=== PATIENT | male | born 1980 | race Caucasian/White ===

== ENCOUNTER 2018-08-19 17:15 | Emergency (ER) | payer OTHER ==
[2018-08-19 17:31] VITALS: BP 152/113
[2018-08-19] MEDS ORDERED: IBUPROFEN 800 MG TABLET PO STA (18:05)
--- NOTE | 2018-08-19 18:06 | ED Physician Documentation ---
PD HPI UPPER EXT INJURY - Stated complaint Stated Complaint: L WRIST/SHOULDER INJ - Chief complaint Chief Complaint: Trauma Ext - History obtained from History obtained from: Patient, Family - History of Present Illness Location: Left (37-year-old gentleman with history of trauma to the left side remotely culminating in a labrum tear on the left shoulder and a fusion of the left wrist fell today on the left side injuring the wrist, hand, and shoulder. He has full range of motion of the shoulder but feels popping and the wrist is severely tender over the dorsal surface and medial surface radiating anteriorly. He cannot move the wrist at all but that is chronic from the fusion. No other injuries. Save for a mild ankle injury and he is walking normally.) Review of Systems Constitutional: reports: Reviewed and negative Cardiac: reports: Reviewed and negative Respiratory: reports: Reviewed and negative PD PAST MEDICAL HISTORY - Past Medical History Respiratory: Asthma - Past Surgical History Past Surgical History: Yes Ortho: Shoulder arthroplasty - Present Medications Home Medications: Ambulatory Orders Medication Instructions Recorded Confirmed Gabapentin 3,600 mg PO TID 01/03/14 04/05/14 traMADol [Ultram] 50 mg PO TID 01/03/14 04/05/14 Amoxicillin 500 mg PO TID #30 tablet 04/03/14 04/05/14 Oxycodone HCl/Acetaminophen 1 - 2 each PO Q6HR PRN #20 tablet 04/03/14 04/05/14 [Percocet 5-325 mg Tablet] - Allergies Allergies/Adverse Reactions: Allergies Allergy/AdvReac Type Severity Reaction Status Date / Time bee venom protein (honey bee) Allergy Anaphylaxis Verified 08/19/18 17:19 propoxyphene napsylate * Allergy Anaphylaxis Verified 04/05/14 09:26 [From Darvocet-N] shellfish derived Allergy Anaphylaxis Verified 08/19/18 17:19 - Social History Does the pt smoke?: No Smoking Status: Never smoker Does the pt drink ETOH?: No Does the pt have substance abuse?: No PD ED PE NORMAL - Vitals Vital signs reviewed: Yes - General General: Alert and oriented X 3, No acute distress - Neck Neck: Supple, no meningeal sign, No bony TTP - Extremities Extremities: Other (Mild tenderness to the left shoulder posteriorly but with full range of motion, he is severely tender over the carpal bones and fourth and fifth metacarpals of the left hand. Cannot move the left hand at all but that is chronic.) - Neuro Neuro: Alert and oriented X 3, Normal speech Results - Vitals Vitals: Vital Signs - 24 hr 08/19/18 17:20 Temperature 36.6 C Heart Rate 114 H Respiratory 18 Rate Blood Pressure 152/113 H O2 Saturation 97 Oxygen O2 Source Room air - Rads (name of study) Rays of the left hand, wrist, and shoulder. Radiology: EMP read contemporaneously (Questionable loosening of the proximal ulnar transverse screw, no other evidence of acute trauma.) Procedures - Splint (location) L wrist Splint applied by: Tech Type of splint: Fiberglass, Volar cock up Other: Patient tolerated well, No complications, Neurovascular intact Departure - Departure Disposition: 01 Home, Self Care Clinical Impression: Wrist sprain Qualifiers: Encounter type: initial encounter Laterality: left Qualified Code(s): S63.502A - Unspecified sprain of left wrist, initial encounter Shoulder sprain Qualifiers: Encounter type: initial encounter Shoulder sprain type: unspecified sprain Laterality: left Qualified Code(s): S43.402A - Unspecified sprain of left shoulder joint, initial encounter Condition: Good Record reviewed to determine appropriate education?: Yes Comments: As discussed, the x-ray shows questionable loosening of the proximal transverse screw in your wrist that extends into the ulna. Keep the fiberglass splint on and dry at all times, ideally will follow up [facility] in [facility] week or so. If unable to follow-up with a hand surgeon in that timeframe, follow-up with your PCM at the [facility] at that time for reexamination. Take the copy of the x-rays with you on CD. Your blood pressure was elevated today on check into the emergency department. This does not mean that you have hypertension, it is a common phenomenon to come to the emergency department and have elevated blood pressure. I recommend that you see your primary care physician within the week to have it rechecked when you are feeling better.
--- NOTE | 2018-08-19 18:51 | XRAY Report ---
Reason: hand inj Procedure Date: 08/19/2018 Accession Number: [id number] / [id number] Procedure: XR - Hand 3 View LT CPT Code: FULL RESULT: EXAM: LEFT HAND RADIOGRAPHY, 3 VIEWS EXAM DATE: 08/19/2018 06:27 PM. CLINICAL HISTORY: 37-year-old male post left hand injury today with ground-level fall. Abrasion on lateral side. COMPARISON: None. TECHNIQUE: Frontal, lateral and oblique views. FINDINGS: Bones: Postsurgical changes with metallic screw and plate fixation extending from the third metacarpal through the wrist, beyond the lower port of this image. Intact. Partial resection of the ulna, incompletely visualized on this study. No fractures or acute bone lesions. Joints: Severe narrowing of the wrist joint, likely secondary to prior surgical intervention. Joint spaces otherwise unremarkable. No subluxation or joint effusion. Soft Tissues: Normal. No soft tissue swelling. IMPRESSION: Intact postsurgical changes through the hand and wrist. No acute fracture or recent posttraumatic abnormality. RADIA
--- NOTE | 2018-08-19 18:54 | XRAY Report ---
Reason: wrist inj Procedure Date: 08/19/2018 Accession Number: [id number] / [id number] Procedure: XR - Wrist 3 View LT CPT Code: FULL RESULT: EXAM: LEFT WRIST RADIOGRAPHY, 3 VIEWS EXAM DATE: 08/19/2018 06:27 PM. CLINICAL HISTORY: 37-year-old male post ground-level fall today with left wrist pain. COMPARISON: None. TECHNIQUE: Frontal, lateral and oblique views. FINDINGS: Bones: Extensive postsurgical changes with dorsal metallic screw and luis fusion extending from the third metacarpal through the junction of the middle and distal thirds of the radius. Transverse screws extending into the distal ulna with loosening of the more proximal screw. Surgical resection of approximately 2.3 cm of the distal ulna. No acute fractures or acute bone lesions. Joints: Narrowing of the wrist joint, likely secondary to surgical fusion. No subluxation or joint effusion. Soft Tissues: Normal. No soft tissue swelling. IMPRESSION: Extensive postsurgical changes as described. No acute process or recent posttraumatic abnormality. Questionable loosening of the more proximal transverse screw extending into the ulna. RADIA
--- NOTE | 2018-08-19 18:55 | XRAY Report ---
Reason: shoulder inj Procedure Date: 08/19/2018 Accession Number: [id number] / [id number] Procedure: XR - Shoulder 3 View LT CPT Code: FULL RESULT: EXAM: LEFT SHOULDER RADIOGRAPHY, 3 VIEWS EXAM DATE: 08/19/2018 06:27 PM. CLINICAL HISTORY: 37-year-old male post ground-level fall with left shoulder injury. COMPARISON: None. TECHNIQUE: AP, Grashey and Y views. FINDINGS: Bones: Normal. No fracture or bone lesion. Joints: The glenohumeral and acromioclavicular joints are normal. Soft tissues: The visualized hemithorax is unremarkable. No soft tissue swelling. IMPRESSION: Normal examination. No posttraumatic abnormality noted. RADIA
== END 2018-08-19 19:28 | disposition home or self-care (01) ==
LOC: ED 17:15
DX: S63.502A Unspecified sprain of left wrist, initial encounter (principal); S43.402A Unspecified sprain of left shoulder joint, initial encounter; W17.89XA Other fall from one level to another, initial encounter; Z98.1 Arthrodesis status
CPT/HCPCS: 29125; 73030; 73110; 73130; 99282; 99283; A9270

== ENCOUNTER 2019-03-07 15:57 | Emergency (ER) | payer MEDICAID, OTHER ==
[2019-03-07 16:18] VITALS: BP 132/92
--- NOTE | 2019-03-07 17:02 | ED Physician Documentation ---
History of Present Illness - Stated complaint Stated Complaint: L KNEE PX - Chief complaint Chief Complaint: Ext Problem - Additonal information Additional information: This is a 38-year-old male presents with pain in his left knee. Patient states he has had some pain over the last week or 2 on a outside of his left knee, which is worse when he is flexing the knee, when he is walking up or down inclines or up stairs. Today he was climbing down a ladder and he had worsening pain in his knee. His father in law reportedly heard a popping noise, patient denies having a sudden sharp acute pain in the knee, but had more of a gradual worsening. He has been able to walk on it, and walking on flat ground even since the laddeer incident does not seem to bother it in particular. No weakness or numbness in the leg. Review of Systems Constitutional: denies: Fever Skin: denies: Rash Musculoskeletal: reports: Joint pain PD PAST MEDICAL HISTORY - Past Medical History Respiratory: Asthma - Past Surgical History Past Surgical History: Yes Ortho: Shoulder arthroplasty - Present Medications Home Medications: Ambulatory Orders Medication Instructions Recorded Confirmed Gabapentin 3,600 mg PO TID 01/03/14 04/05/14 traMADol [Ultram] 50 mg PO TID 01/03/14 04/05/14 Amoxicillin 500 mg PO TID #30 tablet 04/03/14 04/05/14 Oxycodone HCl/Acetaminophen 1 - 2 each PO Q6HR PRN #20 tablet 04/03/14 04/05/14 [Percocet 5-325 mg Tablet] - Allergies Allergies/Adverse Reactions: Allergies Allergy/AdvReac Type Severity Reaction Status Date / Time bee venom protein (honey bee) Allergy Anaphylaxis Verified 08/19/18 17:19 propoxyphene napsylate * Allergy Anaphylaxis Verified 04/05/14 09:26 [From Darvocet-N] shellfish derived Allergy Anaphylaxis Verified 08/19/18 17:19 - Social History Does the pt smoke?: No Smoking Status: Never smoker Does the pt drink ETOH?: No Does the pt have substance abuse?: No PD ED PE NORMAL - Vitals Vital signs reviewed: Yes - General General: Alert and oriented X 3, No acute distress - HEENT HEENT: Atraumatic - Respiratory Respiratory: No respiratory distress - Extremities Extremities: Other (No deformity of the knee, knees are symmetric bilaterally. There is no joint line pain. No bruising, redness or edema. There is no tenderness palpation of the patellar tendon or quadriceps tendon. No laxity with testing of the LCL, MCL, ACL or PCL. No locking or popping with flexion extension with internal or external rotation. There is some tenderness over the lateral aspect of the distal femur. Distal strength with ankle is 5 out of 5 with ankle dorsiflexion and plantarflexion. Knee flexion extension is also 5 out of 5. Sensation to light touch intact over the entire extremity, and strong distal pulses.) - Neuro Neuro: Alert and oriented X 3 - Psych Psych: Normal mood, Normal affect Results - Vitals Vitals: Oxygen O2 Source Room air - Rads (name of study) XR knee Radiology: Other (No acute osseous abnormality) PD MEDICAL DECISION MAKING - ED course Complexity details: considered differential (Fracture, ligamentous injury, strain/sprain, IT tendinitis) ED course: On exam patient has no significant bony tenderness. XR shows no fracture. He has no ligament laxity to suggest ACL/PCL/MCL/LCL injury. Excellent active ROM. He is able to bear weight and walk on the knee. The location of his pain and the factors that exacerbate it are suggestive of IT band tendinitis. I discussed supportive care, gentle IT stretching, and close PCP/sports medicine follow up. I discussed the diagnostic uncertainty and that if he is changing his gait due to pain he needs crutches and a knee brace. I also discussed return precautions. Patient agrees and was discharged home. Departure - Departure Disposition: 01 Home, Self Care Clinical Impression: Knee pain, left Qualifiers: Chronicity: unspecified Qualified Code(s): M25.562 - Pain in left knee Condition: Good Follow-Up: Your,PCP [Other] - Within 1 week Comments: You were seen today for pain in her your left knee. At this time the ligaments appear intact. I think it is possible that you have IT band tendinitis, or inflammation of the tissue that runs from the outside of your knee up to your hip. This is treated with ibuprofen, 600 mg every 6 hours, stretching, and you can massage or roll out the side of your leg as we discussed. If you are having catching, or locking of your knee, or pain deep within the knee joint, is also possible that you did some damage to your meniscus. If your symptoms are not improving with the stretching and ibuprofen, please follow-up with your primary care provider or with a sports medicine doctor, and you may need an MRI to check for damage to other structures of the knee. It is okay to walk on your knee as long as it is not worsening your pain. If you develop fever, or a large amount of joint swelling, return to the emergency department. Discharge Date/Time: 03/07/19 17:25
--- NOTE | 2019-03-07 17:11 | XRAY Report ---
Reason: left knee injury Procedure Date: 03/07/2019 Accession Number: [id number] / [id number] Procedure: XR - Knee 3 View LT CPT Code: FULL RESULT: EXAM: LEFT KNEE RADIOGRAPHY EXAM DATE: 03/07/2019 04:38 PM. CLINICAL HISTORY: Left knee injury. COMPARISON: None. TECHNIQUE: 3 views. FINDINGS: Bones: Normal. No fractures or bone lesions. Joints: Normal. No effusion. No subluxations. Soft Tissues: Normal. No soft tissue swelling. IMPRESSION: Normal knee radiography. RADIA
== END 2019-03-07 17:25 | disposition home or self-care (01) ==
LOC: ED 15:57
DX: M25.562 Pain in left knee (principal); X50.9XXA Other and unspecified overexertion or strenuous movements or postures, initial encounter; Y93.39 Activity, other involving climbing, rappelling and jumping off
CPT/HCPCS: 99283; 99284

== ENCOUNTER 2022-02-08 10:42 | Outpatient (CLI) | payer OTHER ==
--- NOTE | 2022-02-08 16:52 | Ultrasound Report ---
PROCEDURE: Abdomen Complete INDICATIONS: ABD NODULE TECHNIQUE: Real-time scanning was performed of the abdominal and retroperitoneal organs, with image documentatio n. COMPARISON: None. FINDINGS: Liver: Liver is normal in size and mildly heterogeneous in echotexture. No focal intrahepatic lesio ns identified. Gallbladder: Gallbladder is normal in appearance without gallstones, gallbladder wall thickening, or pericholecystic fluid. Negative sonographic Andino's sign. Biliary ducts: Intrahepatic bile ducts are non-dilated. Extrahepatic bile duct caliber measures 4.5 mm. Normal is 6-7 mm or less in diameter, or 10 mm or less post-cholecystectomy. Pancreas: Visualized portions of the pancreas are sonographically normal. Spleen: Spleen is normal in size and homogeneous in echotexture. Kidneys: Kidneys are normal in size and echotexture. Right kidney measures 9.8 cm long; left kidney measures 9 cm long. No hydronephrosis or nephrolithiasis. No solid masses. Aorta: Visualized aorta is normal in caliber at less than 3 cm. Iliacs: Proximal common iliac arteries are normal in caliber at less than 2.5 cm. IVC: Intrahepatic inferior vena cava is patent. Miscellaneous: No free abdominal fluid. At the patient directed area of concern which localized to the left inferolateral aspect of the umbilicus, no focal abnormalities were identified. No mass lesio ns. No ventral hernias. Incidental note of a traversing arterial vessel is noted. IMPRESSION: Mildly heterogeneous hepatic echotexture possibly related to hepatic steatosis or sequela of chronic hepatocellular disease. Recommend clinical and laboratory correlation. No focal abnormalities identified in the area of palpable concern. Recommend continued clinical surve illance with follow-up imaging as needed. Reviewed by: Bairon Licona MD on 02/08/2022 4:51 PM PDT Approved by: Bairon Licona MD on 02/08/2022 4:51 PM PDT Station ID: [id number]
== END 2022-02-08 10:43 | disposition home or self-care (01) ==
LOC: DI 10:42
PROVIDERS: ATTEND Internal Medicine
DX: R19.04 Left lower quadrant abdominal swelling, mass and lump (principal)

== ENCOUNTER 2023-04-16 21:59 | Emergency (ER) | payer OTHER ==
[2023-04-16 22:15] VITALS: BP 153/88; O2SAT 100
[2023-04-16] MEDS ORDERED: IBUPROFEN 800 MG TABLET PO STA (23:13)
--- NOTE | 2023-04-17 00:15 | XRAY Report ---
PROCEDURE: Forearm LT INDICATIONS: SWELLING/PAIN + TENDERNESS L FOREARM TECHNIQUE: 2 views of the forearm were acquired. COMPARISON: 08/19/2018 FINDINGS: Bones: There is plate/screw fixation extending from the distal humerus to the third metacarpal, along with postsurgical changes the carpal bones. A few soft tissue anchors are seen in the distal radial shaft, there are new compared to 2019. In addition, compared to 2019, increased osteophytosis at the distal ulna, with erosions and cortical irregularity. Soft tissues: Diffuse soft tissue swelling. Tiny radiodensities are seen in the distal ulna. IMPRESSION: Postsurgical changes the carpal bones, along with plate/screw fixation from the distal radius to the third metacarpal. Soft tissue anchors in the distal radius appear new compared to 2019. In addition, there is increased ostial lysis and cortical irregularity of the distal ulna. Tiny hyperdensities are seen in the region of the distal ulna. Findings may represent particle disease, infection, and/or in flammation. Consider orthopedic follow-up. Reviewed by: Juan Ramon Aguilar MD on 04/17/2023 12:13 AM PST Approved by: Juan Ramon Aguilar MD on 04/17/2023 12:13 AM PST Station ID: [id number]
--- NOTE | 2023-04-17 00:27 | ED Physician Documentation ---
PD HPI UPPER EXT INJURY - Stated complaint Stated Complaint: LT ARM PX - Chief complaint Chief Complaint: Ext Problem - History obtained from History obtained from: Patient - Additonal information Additional information: Patient is a 42-year-old male presenting for evaluation of left wrist pain that started an hour ago. Patient has had multiple surgeries to the left wrist and has a fusion with hardware present. His last surgery was in 2019. He reports he was cleaning a table when he felt a pop in his wrist and increased pain. Denies numbness or tingling. Has limited range of motion of the wrist at baseline.Declines need for any narcotic pain medication. Review of Systems Musculoskeletal: reports: Extremity pain Neurologic: denies: Head injury PD PAST MEDICAL HISTORY - Past Medical History Respiratory: Asthma - Past Surgical History Past Surgical History: Yes Ortho: Shoulder arthroplasty - Present Medications Home Medications: Ambulatory Orders Medication Instructions Recorded Confirmed Home Medications Unobtainable 04/16/23 [HOME MEDICATIONS UNOBTAINABLE] - Allergies Allergies/Adverse Reactions: Allergies Allergy/AdvReac Type Severity Reaction Status Date / Time bee venom protein (honey bee) Allergy Anaphylaxis Verified 04/16/23 22:10 propoxyphene napsylate * Allergy Anaphylaxis Verified 04/16/23 22:10 [From Darvocet-N] shellfish derived Allergy Anaphylaxis Verified 04/16/23 22:10 - Social History Does the pt smoke?: No Smoking Status: Never smoker Does the pt drink ETOH?: No Does the pt have substance abuse?: No PD ED PE NORMAL - General General: Alert and oriented X 3, No acute distress, Well developed/nourished - HEENT HEENT: Atraumatic - Cardiac Cardiac: Strong equal pulses - Respiratory Respiratory: No respiratory distress - Extremities Extremities: Other (Tenderness over an area of swelling to left wrist. Patient states that the swelling is always present there but that he does not normally have tenderness like he does tonight. Good routeman strength, no tenderness over hand, normal range of motion at elbow, 2+ radial pulse, sensation grossly intact to) Results - Vitals Vitals: Vital Signs - 24 hr 04/16/23 22:05 Temperature 36.5 C Heart Rate 76 Respiratory 17 Rate Blood Pressure 153/88 H O2 Saturation 100 Oxygen O2 Source Room air PD Medical Decision Making - ED course Complexity details: reviewed results, d/w patient ED course: Patient is a 42-year-old presenting for evaluation of left wrist pain. He has had several prior surgeries to the left wrist including a fusion with last surgery being 3 years ago. He does have a chronic deformity to the wrist and limited range of motion at baseline. Motor and sensation are intact distally, intact pulses. An x-ray was obtained which I reviewed I see no fracture or dislocation and the hardware appears to be in place. There is some irregularity of the distal ulna and the last x-ray I have is from 2019. Patient states he has had another surgery since that time. He does not have symptoms to suggest an infection. We will place into a Velcro splint. Patient declines the need for any pain medication. I did give him information for the local orthopedic office and recommend close follow-up. He is also aware of concerning symptoms to return for. Departure - Departure Disposition: 01 Home, Self Care Clinical Impression: Left wrist pain Condition: Stable Instructions: ED Strain Muscle Ext Follow-Up: El Cox MD [Provider Admit Priv/Credential] - Comments: Your x-ray does not show any new fractures or injuries. Your hardware does appear to be intact and where it is supposed to be. There are some irregularities noticed with the distal ulna which could be the cause of your pain. I do think you should have close follow-up with an orthopedic surgeon and [place] Please use the wrist splint as needed for comfort. Continue with ice, anti-inflammatories and elevation. Return to the ER with any worsening symptoms. IMPRESSION: Postsurgical changes the carpal bones, along with plate/screw fixation from the distal radius to the third metacarpal. Soft tissue anchors in the distal radius appear new compared to 2019. In addition, there is increased ostial lysis and cortical irregularity of the distal ulna. Tiny hyperdensities are seen in the region of the distal ulna. Findings may represent particle disease, infection, and/or inflammation. Consider orthopedic follow-up. Forms: PCP List Discharge Date/Time: 04/17/23 00:50
== END 2023-04-17 00:50 | disposition home or self-care (01) ==
LOC: ED 21:59
DX: M25.532 Pain in left wrist (principal); X58.XXXA Exposure to other specified factors, initial encounter; Y93.E9 Activity, other interior property and clothing maintenance
CPT/HCPCS: 99283

== ENCOUNTER 2023-12-14 10:33 | Emergency (ER) | payer OTHER ==
--- NOTE | 2023-12-14 11:33 | XRAY Report ---
PROCEDURE: Forearm LT INDICATIONS: Trauma TECHNIQUE: 2 views of the forearm were acquired. COMPARISON: 04/16/2023. FINDINGS: Bones: No fractures or dislocations. Radiocarpal fusion hardware in place. Stable severe erosion of the distal ulna. No suspicious bony lesions. Soft tissues: No suspicious soft tissue calcifications or masses. IMPRESSION: Stable exam compared to prior. Redemonstration of radiocarpal fusion hardware. Stable erosion of the distal ulna. Reviewed by: Aram Corrales MD on 12/14/2023 11:32 AM PDT Approved by: Aram Corrales MD on 12/14/2023 11:32 AM PDT Station ID: [id number]
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
[2023-12-14 12:57] VITALS: BP 130/80; O2SAT 100
== END 2023-12-14 13:16 | disposition home or self-care (01) ==
LOC: ED 10:33 → SUPCPDRO 10:33 → ED 13:16
DX: S63.502A Unspecified sprain of left wrist, initial encounter (principal); W54.1XXA Struck by dog, initial encounter
CPT/HCPCS: 99283

== ENCOUNTER 2024-01-30 09:56 | Outpatient (CLI) | payer OTHER ==
--- NOTE | 2024-01-30 20:40 | CT Report ---
PROCEDURE: Upper Extremity LT WO INDICATIONS: L WRIST PAIN TECHNIQUE: Noncontrast 2 mm axial sections were acquired through the elbow joint, with coronal and sagittal refo rmats. For radiation dose reduction, the following was used: automated exposure control, adjustment of mA and/or kV according to patient size. COMPARISON: Forearm radiograph dated 12/14/2023, 04/16/2023 and left wrist radiograph dated 08/19/2018. FINDINGS: Image quality: Diagnostic. Remaining hardening artifacts are noted from left wrist surgical hardware. . Bones: Again noted are postsurgical changes from prior arthrodesis of left wrist with surgical hardw are extending from distal radial shaft to third metacarpal base. No obvious hardware loosening or valdemar lure is seen. Wrist alignment is anatomic. Likely surgical resection of distal ulnar is seen. There i s near complete bony fusion at radiocarpal joint and complete bony union involving the lunate and tri quetrum as well as capitate. Partial bony union involving second and third CMC joints are seen. Osteo arthritic changes are noted throughout rest of the wrist joints and CMC joints. No acute fracture or dislocation. No suspicious bony lesions. Soft tissues: No gross soft tissue mass or drainable fluid collection. No full-thickness wrist tendo n rupture. No significant joint effusion or calcified intra-articular loose bodies. IMPRESSION: 1. Extensive postsurgical changes in left wrist with wrist joint arthrodesis. No acute fracture or di slocation. Likely postsurgical deformity involving distal ulnar, suggest clinical correlation. No demarcus ss hardware loosening or failure. 2. 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 No suspicious bony lesion. Diffuse osteopenia. 3. No gross distal forearm and wrist soft tissue abnormalities. No full-thickness wrist tendon ruptur e. Reviewed by: Yonathan Sanchez MD on 01/30/2024 8:39 PM PDT Approved by: Yonathan Sanchez MD on 01/30/2024 8:39 PM PDT Station ID: [id number]
== END 2024-01-30 09:57 | disposition home or self-care (01) ==
LOC: DI 09:56
PROVIDERS: ATTEND Nurse Practitioner
DX: M19.032 Primary osteoarthritis, left wrist (principal); M18.12 Unilateral primary osteoarthritis of first carpometacarpal joint, left hand; Z98.1 Arthrodesis status; M85.88 Other specified disorders of bone density and structure, other site